=== PATIENT | male | born 1955 | race Asian ===

== ENCOUNTER 2018-06-06 12:15 | Day surgery (SDC) | payer BC ==
[2018-06-06] MEDS ORDERED: PROPOFOL 40 ML (13:49)
== END 2018-06-06 15:38 | disposition home or self-care (01) ==
LOC: GIL 12:15
DX: Z12.11 Encounter for screening for malignant neoplasm of colon (principal); K64.8 Other hemorrhoids
CPT/HCPCS: 45378